=== PATIENT | female | born 1940 | race Caucasian/White ===

== ENCOUNTER 2016-08-16 14:39 | Emergency (ER) | payer MEDICARE, OTHER ==
[2016-08-16 15:00] VITALS: BP 169/70
--- NOTE | 2016-08-16 15:25 | EDM.PDOC ---
ED HPI GENERAL MEDICAL PROBLEM - General Chief Complaint: Upper Extremity Injury/Pain Stated Complaint: RIGHT ARM PAIN Time Seen by Provider: 08/16/16 15:25 Source of Information: Reports: Patient History Limitations: Reports: No Limitations - History of Present Illness INITIAL COMMENTS - FREE TEXT/NARRATIVE: pt arrived with pain in the rt shoulder area which came on acutely. She did not fall or injure the shoulder. Onset: Today Duration: Hour(s):, Getting Worse Location: Reports: Upper Extremity, Right Associated Symptoms: Reports: Other ( hurts when she lifts her arm up on the rt. ) Right Shoulder Pain Score (Numeric/FACES): 8 - Related Data Allergies Allergy/AdvReac Type Severity Reaction Status Date / Time No Known Allergies Allergy Verified 08/16/16 15:04 Home Meds: Home Meds Lisinopril [Prinivil] 30 mg PO DAILY 08/16/16 [History] Metoprolol Tartrate [Lopressor] 50 mg PO DAILY 08/16/16 [History] Simvastatin [Simvastatin] 20 mg PO DAILY 08/16/16 [History] amLODIPine [Norvasc] 10 mg PO DAILY 08/16/16 [History] Past Medical History Cardiovascular History: Reports: High Cholesterol, Hypertension F[employer] D[employer]ER History: Reports: Musculoskeletal History: Reports: Back Pain, Chronic - Infectious Disease History Infectious Disease History: Reports: Chicken Pox, Measles, Mumps - Past Surgical History Female Surgical History: Reports: Section Other Musculoskeletal Surgeries/Procedures:: back surgery Social & Family History - Tobacco Use Smoking Status *Q: Heavy Tobacco Smoker Years of Tobacco use: 40 Packs/Tins Daily: 1 - Caffeine Use Caffeine Use: Reports: Coffee - Alcohol Use Days Per Week of Alcohol Use: 7 Number of Drinks Per Day: 2 Total Drinks Per Week: 14 - Recreational Drug Use Recreational Drug Use: No Review of Systems - Review of Systems Review Of Systems: See Below Constitutional: Reports: No Symptoms Eyes: Reports: No Symptoms Ears: Reports: No Symptoms Nose: Reports: No Symptoms Mouth/Throat: Reports: No Symptoms Respiratory: Reports: No Symptoms Cardiovascular: Reports: No Symptoms GI/Abdominal: Reports: No Symptoms Genitourinary: Reports: No Symptoms Musculoskeletal: Reports: Other ( pain in the rt shoulder. ) Skin: Reports: No Symptoms Neurological: Reports: No Symptoms ED EXAM, GENERAL - Physical Exam Exam: See Below Free Text/Narrative:: pt developed acute pain in the ant portion of the rt shoulder. Exam Limited By: No Limitations General Appearance: Alert, Anxious Ears: Normal TMs Nose: Normal Inspection Throat/Mouth: Normal Inspection Head: Atraumatic Neck: Normal Inspection Respiratory/Chest: No Respiratory Distress Cardiovascular: Regular Rate, Rhythm GI/Abdominal: Soft, Non-Tender (Female) Exam: Deferred Rectal (Female) Exam: Deferred Back Exam: Normal Inspection Extremities: Other (pt has marked tenderness in the ant portion of her rt shoulder. She has alot of pain when she lifts her rt arm. She has no bruising or swelling at the site. ) Neurological: Alert, Oriented, Normal Cognition Course - Vital Signs Last Recorded V/S: Last Vital Signs Temp 36.4 C 08/16/16 15:05 Pulse 79 08/16/16 15:05 Resp 16 08/16/16 15:05 BP 169/70 H 08/16/16 15:05 Pulse Ox 95 08/16/16 15:05 - Orders/Labs/Meds Meds: Medications Discontinued Medications Generic Name Dose Route Start Last Admin Trade Name Freq PRN Reason Stop Dose Admin Oxycodone/Acetaminophen 1 tab 08/16/16 15:26 08/16/16 15:30 Percocet 325-5 Mg PO 08/16/16 15:27 1 tab ONETIME ONE Administration - Re-Assessments/Exams Free Text/Narrative Re-Assessment/Exam: 08/16/16 15:37 pt was offered a cortisone injection for the possible tendonitis of the rt shoulder. She choose not to have that and so she will be placed on naprosyn 500mg bid with food, norco 5/325 q6h prn for main, rigorpous use of moist heat. Departure - Departure Time of Disposition: 15:26 Disposition: Home, Self-Care 01 Condition: fair Clinical Impression: Tendonitis - Discharge Information Referrals: PCP,None [Primary Care Provider] - Forms: ED Department Discharge Care Plan Goals: moist warm heat 20 min qid, naprosyn 500mg bid for inflamation with food, norco 5/325 q6h prn for pain # 8 Use prunes and alot of fluids to avoid constipation.
[2016-08-16] MEDS ORDERED: Acetaminophen/oxyCODONE 325-5 MG Tab PO ONE (15:26)
== END 2016-08-16 15:42 | disposition home or self-care (01) ==
LOC: JP.ED 14:39
DX: M75.81 Other shoulder lesions, right shoulder (principal); I10 Essential (primary) hypertension; E78.00 Pure hypercholesterolemia, unspecified; F17.210 Nicotine dependence, cigarettes, uncomplicated; Z98.890 Other specified postprocedural states; Z79.899 Other long term (current) drug therapy
CPT/HCPCS: 99283; A9270